=== PATIENT | female | born 1980 | race Two or more races ===

== ENCOUNTER 2025-06-11 11:25 | Emergency (ER) | payer SELFPAY ==
[~2025-06-11] VITALS: Ht 165.1 cm; Wt 82.0 kg
[2025-06-11 11:25] VITALS: BP 160/111; PULSE 84; RESP 18; TEMP 98.2; O2SAT 96
== END 2025-06-11 13:31 | disposition left against medical advice (07) ==
LOC: ER 11:25 → EDBD 11:25 → ER 13:31
DX: T40.411A Poisoning by fentanyl or fentanyl analogs, accidental (unintentional), initial encounter (principal); Z53.21 Procedure and treatment not carried out due to patient leaving prior to being seen by health care provider; Y92.89 Other specified places as the place of occurrence of the external cause